=== PATIENT | male | born 1990 | race American Indian/Alaskan Native ===

== ENCOUNTER 2018-04-09 23:18 | Emergency (ER) | payer SELFPAY ==
[2018-04-10 00:18] LABS: Basophils # (Auto) 0.1 K/mm3 (0.0-0.1); Basophils % (Auto) 0.5 % (0.0-1.8); Eosinophils # (Auto) 0.1 K/mm3 (0.0-0.4); Eosinophils % (Auto) 1.4 % (0.0-4.3); Hematocrit 48.5 % (35.5-45.6); Hemoglobin 16.7 gm/dl (11.8-15.2); Lymphocytes # (Auto) 3.8 K/mm3 (1.2-5.4); Lymphocytes % (Auto) 36.6 % (13.4-35.0); Mean Corpuscular HGB Conc 34 % (32-34); Mean Corpuscular Volume 94 fl (84-94); Monocytes % (Auto) 9.4 % (0.0-7.3); Platelet Count 262 K/mm3 (140-440); Red Blood Count 5.18 M/mm3 (3.65-5.03); Red Cell Distribution Width 13.3 % (13.2-15.2)
[2018-04-10 00:40] LABS: BUN/Creatinine Ratio 10; Blood Urea Nitrogen 8 mg/dL (9-20); Calcium 9.1 mg/dL (8.4-10.2); Hemolysis Index 54
--- NOTE | 2018-04-10 01:42 | XRay Report ---
FINAL REPORT PROCEDURE: XR CHEST ROUTINE 2V TECHNIQUE: PA and lateral chest radiographs were obtained. CPT 05723 HISTORY: CHAD COMPARISON: No prior studies are available for comparison. FINDINGS: Heart: Normal. Mediastinum/Vessels: Normal. Lungs/Pleural space: Normal. Bony thorax: No acute osseous abnormality. Other: IMPRESSION: Normal examination.
[2018-04-10] MEDS ORDERED: TORADOL IV ONE (02:02)
--- NOTE | 2018-04-10 02:11 | Emergency Department Report ---
ED Chest Pain HPI - General Chief Complaint: Chest Pain Stated Complaint: CHAD, CHEST PAIN Time Seen by Provider: 04/10/18 01:19 Source: patient Mode of arrival: Ambulatory Limitations: No Limitations - History of Present Illness Initial Comments: 27-year-old male presents to ED with complaint of chest pain 5 days. He states pain is sharp, pleuritic, left-sided, nonradiating. Patient reports onset of shortness of breath yesterday. Patient denies leg pain or swelling, fever or cough. MD Complaint: chest pain -: days(s) (5) Onset: during rest Pain Location: left chest Pain Radiation: none Severity: moderate Severity scale (0 -10): 3 Quality: sharp Consistency: constant Improves With: nothing Worsens With: inspiration re: dyspnea. denies: nausea, vomting, diaphoresis Other Symptoms: denies: cough, fever, leg swelling - Related Data Previous Rx's Medication Instructions Recorded Last Taken Type Ibuprofen 800 mg PO BID 7 Days #14 tablet 04/10/18 Unknown Rx Allergies Allergy/AdvReac Type Severity Reaction Status Date / Time No Known Allergies Allergy Unverified 04/09/18 23:27 Heart Score - HEART Score History: Slightly suspicious EKG: Normal Age: < 45 Risk factors: No known risk factors Troponin: < normal limit HEART Score: 0 ED Review of Systems ROS: Stated complaint: CHAD, CHEST PAIN Other details as noted in HPI Comment: All other systems reviewed and negative Constitutional: denies: chills, fever Respiratory: shortness of breath. denies: cough Cardiovascular: chest pain Gastrointestinal: denies: nausea, vomiting Musculoskeletal: other (denies leg pain and swelling) ED Past Medical Hx - Past Medical History Previous Medical History?: No - Surgical History Past Surgical History?: No - Social History Smoking Status: Current Every Day Smoker Substance Use Type: Alcohol, Marijuana - Medications Home Medications: Home Medications Medication Instructions Recorded Confirmed Last Taken Type Ibuprofen 800 mg PO BID 7 Days #14 tablet 04/10/18 Unknown Rx ED Physical Exam - General Limitations: No Limitations General appearance: alert, in no apparent distress - Head Head exam: Present: atraumatic, normocephalic - Eye Eye exam: Present: normal appearance - ENT ENT exam: Present: mucous membranes moist - Neck Neck exam: Present: normal inspection - Respiratory Respiratory exam: Present: normal lung sounds bilaterally. Absent: respiratory distress - Cardiovascular Cardiovascular Exam: Present: regular rate, normal rhythm - GI/Abdominal GI/Abdominal exam: Present: soft. Absent: distended - Extremities Exam Extremities exam: Absent: pedal edema, calf tenderness - Neurological Exam Neurological exam: Present: alert, oriented X3 - Psychiatric Psychiatric exam: Present: normal affect, normal mood - Skin Skin exam: Present: warm, dry, intact, normal color ED Course Vital Signs 04/09/18 04/10/18 04/10/18 23:37 01:12 02:51 Temperature 98.3 F 97.8 F Pulse Rate 84 75 Respiratory 20 18 12 Rate Blood Pressure 111/73 Blood Pressure 119/80 [Left] O2 Sat by Pulse 98 100 Oximetry 04/10/18 04:32 Temperature 98.6 F Pulse Rate 57 L Respiratory 18 Rate Blood Pressure Blood Pressure 118/59 [Left] O2 Sat by Pulse 100 Oximetry ED Medical Decision Making - Lab Data Result diagrams: 04/10/18 00:00 04/10/18 00:00 - EKG Data -: EKG Interpreted by Md EKG shows normal: sinus rhythm, axis, intervals, QRS complexes Rate: normal - EKG Data Interpretation: no acute changes, pericarditis - Radiology Data Radiology results: report reviewed, image reviewed - Medical Decision Making 27-year-old male with chest pain or shortness of breath, pleuritic in nature. CTA chest was obtained due to character of patient's chest pain. CTA was negative for PE. Labs normal, including troponin. No elevation of WBCs. Patient afebrile. Vital signs normal. EKG shows possible evidence of pericarditis due to diffuse ST elevations. CTA shows no effusion or tamponade. I believe this patient is safe for outpatient treatment. Given prescription for ibuprofen 800 mg to be taken twice a day. Outpatient follow-up given, return precautions given. - Differential Diagnosis PE, pneumothorax, ACS, costochondritis Critical care attestation.: If time is entered above; I have spent that time in minutes in the direct care of this critically ill patient, excluding procedure time. ED Disposition Clinical Impression: Pericarditis Disposition: DC-01 TO HOME OR SELFCARE Is pt being admited?: No Condition: Stable Instructions: Acute Pericarditis (ED) Prescriptions: Ibuprofen 800 mg PO BID 7 Days #14 tablet Referrals: MIGUEL ALVA MD [Primary Care Provider] - 3-5 Days [facility] [Provider Group] - 3-5 Days [facility] [Provider Group] - 3-5 Days Time of Disposition: 04:10
[2018-04-10 02:27] LABS: INR 0.99 (0.87-1.13)
[2018-04-10 02:28] LABS: Partial Thromboplastin Time 28.7 Sec. (24.2-36.6)
--- NOTE | 2018-04-10 03:42 | Cat Scan Report ---
FINAL REPORT PROCEDURE: CT ANGIO CHEST TECHNIQUE: Computerized axial tomographic angiography of the chest and pulmonary arteries was perfor med after the IV injection of iodinated nonionic contrast. The image data was postprocessed using max imum intensity projection (MIP) and 2-dimensional multiplanar reformatted (MPR) techniques. The exami nation is specifically tailored to the evaluation of the pulmonary arteries per clinical request. HISTORY: Short of breath 786.09, chest pain 786.50, chest pain COMPARISON: No prior studies are available for comparison. FINDINGS: Heart and pericardium: Normal. Thoracic aorta: There is no thoracic aortic aneurysm or dissection.. Pulmonary vasculature: The there is no pulmonary embolism.. Lymph nodes: No enlarged thoracic lymph nodes. Lungs: The lungs are well-expanded. There is focal pleural thickening and fibrosis at the left lung b ase. There are no infiltrates.. Pleural space: No effusion, thickening, or pneumothorax. Musculoskeletal structures: No significant abnormality. Upper abdominal structures: No significant abnormality. IMPRESSION: There is no pulmonary embolism..
[2018-04-10 04:34] VITALS: BP 118/59
== END 2018-04-10 04:35 | disposition home or self-care (01) ==
LOC: ED 23:18
DX: I31.9 Disease of pericardium, unspecified (principal); F17.200 Nicotine dependence, unspecified, uncomplicated
CPT/HCPCS: 36415; 71046; 71275; 80048; 84484; 85025; 85379; 85610; 85730; 93005; 93010; 99284; Q9967; J1885

== ENCOUNTER 2020-09-29 12:14 | Emergency (ER) | payer SELFPAY ==
[2020-09-29 12:45] VITALS: BP 105/73
[2020-09-29] MEDS ORDERED: LIDOCAINE (1%) 10 MG/1 ML VIAL 20 ML MDV INFILTRATI ONE (12:55)
[2020-09-29] MEDS ORDERED: TETANUS,DIPH,PERTUSS(ACELL) VACCINE 0.5 ML SYRINGE IM ONE (12:55)
[2020-09-29] MEDS ORDERED: HYDROcodone/ACETAMINOPHEN 5-325 MG TAB PO ONE (12:55)
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
--- NOTE | 2020-09-29 14:10 | XRay Report ---
RIGHT HAND, 3 VIEWS INDICATION / CLINICAL INFORMATION: laceration, r/o glass FB. COMPARISON: None available. FINDINGS: No evidence for radiopaque foreign object within the soft tissues of the hand. No fracture or malalignment noted. Soft tissue edema is noted between the index and middle finger pre sumably related to history of laceration. IMPRESSION: 1. No acute osseous abnormality. 2. No visible radiopaque foreign object. Signer Name: Belen White MD Signed: 09/29/2020 2:06 PM Workstation Name: [id number]
[2020-09-29] MEDS ORDERED: LORazepam 1 MG TAB PO ONE (14:17)
== END 2020-09-29 15:54 | disposition home or self-care (01) ==
LOC: ED 12:14
DX: S21.119A Laceration without foreign body of unspecified front wall of thorax without penetration into thoracic cavity, initial encounter (principal); Y08.89XA Assault by other specified means, initial encounter; Y93.89 Activity, other specified; Y92.89 Other specified places as the place of occurrence of the external cause; Y99.8 Other external cause status
CPT/HCPCS: 90471; 90715; 99283